=== PATIENT | male | born 1965 | race Caucasian/White ===

== ENCOUNTER → 2016-10-15 | Outpatient (CLI) | payer OTHER ==
[~2016-10-15] MED LIST: COZAAR100 MG PO; DIOVAN160 MG PO; GABAPENTIN300 MG PO; GEMFIBROZIL600 MG PO; MORPHINE SULFAT30 M2 PO; OXYCONTIN20 MG PO; PERCOCET 5/31 TABLET PO; PREDNISONE5 M1 PO; PROMETHAZINE HC25 M1 PO; TRILIPIX135 MG PO; VALIUM5 MG PO; VENTOLIN HFA18 GM IH; VENTOLIN17 GM IH; VITAMIN D400 UNI1 PO; ZOFRAN4 MG PO
== END | disposition home or self-care (01) ==
LOC: AMB 12:52
PROC: B01B1ZZ Fluoroscopy of Spinal Cord using Low Osmolar Contrast (ICD-10-PCS; principal; 2016-10-15)
DX: M47.25 Other spondylosis with radiculopathy, thoracolumbar region (principal); M43.27 Fusion of spine, lumbosacral region
CPT/HCPCS: 62304; 72132

== ENCOUNTER → 2016-10-29 | Outpatient (CLI) | payer OTHER | END | disposition home or self-care (01) | LOC: MRI 10:28 → RAD 11:00 | DX: M48.06 Spinal stenosis, lumbar region (principal); M25.78 Osteophyte, vertebrae; Z98.890 Other specified postprocedural states | CPT/HCPCS: 72110; 72197 ==

== ENCOUNTER → 2016-12-06 | Outpatient (CLI) | payer OTHER | END | disposition home or self-care (01) | LOC: RAD 14:43 | DX: N26.1 Atrophy of kidney (terminal) (principal); R31.29 Other microscopic hematuria | CPT/HCPCS: 74176 ==